=== PATIENT | female | born 1970 | race Caucasian/White ===

== ENCOUNTER 2023-12-25 08:37 | Outpatient (CLI) | payer BC, SELFPAY | END 2023-12-25 08:38 | disposition home or self-care (01) | LOC: FRMREF 08:39 | PROVIDERS: PCP Physician Assistant Medical; Visit Provider Registered Nurse | DX: N92.0 Excessive and frequent menstruation with regular cycle (principal) | CPT/HCPCS: 82728; 83540; 83550; 84443 ==

== ENCOUNTER 2024-01-26 07:08 | Outpatient (CLI) | payer BC, SELFPAY ==
--- NOTE | 2024-01-26 07:15 | US_ITS ---
Patient: PATRICIO MAC Facility:?[facility] Patient ID:?[id number] Site Patient ID:?[id number]. Site :?[id number] Study:?US-Pelvis TRANSABDOMINAL AND TRANSVAGINAL-01/26/2024 8:02:09 AM Ordering Physician:JESS WILKINSON Final Report: INDICATION: Excessive and frequent menstruation. Comparison : None. TECHNIQUE: Transabdominal and transvaginal pelvic ultrasound. FINDINGS: The uterus measures 10.4 x 6 x 6.3 cm. Heterogeneous echotexture of myometrium. A 3.2 x 3 cm hyperechoic area involving the anterior upper uterine body ; rule out fibroid. Endometrial stripe measures 1.3 cm in thickness with polypoid deformities measuring 1.4 x 0.9 x 1.2 cm and 1 x 0.7 x 0.9 cm; rule out 2 endometrial polyps. No fluid identified within the endometrial cavity. Right ovary measures 3.1 x 2 x 2.1 cm on the left ovary measures 6.4 x 2.1 x 3.1 cm. Normal blood flow to the ovaries bilaterally. A 2.3 x 2.4 x 2.7 cm simple cyst left ovary and a 2.5 cm dominant follicle left ovary. No free fluid identified in the pelvic cul-de-sac. IMPRESSION: 1. Heterogeneous myometrium with a 3.2 cm possible uterine fibroid intramural/submucosal anterior upper uterine body. 2. Polypoid deformities endometrial lining; rule out polyps; suggest hysterosonogram. 3. A 3.2 x 2.4 x 2.7 cm non complicated cyst left ovary Dictated by Kody Eaton MD @ 01/26/2024 2:59:51 PM Signed by:?Kody Eaton MD @01/26/2024 2:59:51 PM (Electronic Signature)
== END 2024-01-26 07:09 | disposition home or self-care (01) ==
PROVIDERS: PCP Physician Assistant Medical; Visit Provider Registered Nurse
DX: N92.0 Excessive and frequent menstruation with regular cycle (principal); D25.1 Intramural leiomyoma of uterus; N83.202 Unspecified ovarian cyst, left side
CPT/HCPCS: 76830; 76856; 93976

== ENCOUNTER 2024-04-06 09:30 | Day surgery (SDC) | payer BC, SELFPAY ==
[2024-04-06] MEDS: LACTATED RINGERS 1000 ML 1,000 ML 100 ML IV (07:25)
[2024-04-06 09:46] VITALS: BP 124/88; PULSE 67; RESP 18; TEMP 37.1; O2SAT 97
[2024-04-06] MEDS: SODIUM CHLORIDE 0.9 % (FLUSH) 10 ML SYRINGE IVF (10:07)
--- NOTE | 2024-04-06 10:13 | W.PM.H&PU ---
History & Physical Update History & Physical Update H&P Reviewed and patient assessed: No changes noted
--- NOTE | 2024-04-06 10:14 | SUR.PREOP ---
Pt very teary eyed when Dr. Pena into see her questions answered here with pt
[2024-04-06 10:15] LABS: Ur HCG Qualitative* Negative (Negative)
[2024-04-06 10:17] LABS: Hemoglobin* 12.7 gm/dL (12.0-16.0)
--- NOTE | 2024-04-06 10:33 | P.GYNPRC_ITS ---
Procedure Note Time Seen by Provider: 10:33 Date of procedure: 04/06/24 Will [facility] bill your pro fee for this procedure?: Yes Procedure: Preoperative diagnosis: 53 year-old with abnormal uterine bleeding. Postoperative diagnosis: Same Procedure: Hysteroscopy, dilation and curettage, polypectomy, Mirena IUD insertion, hymenal skin tag excision and repair. Anesthesia: Conscious sedation with paracervical block. Surgeon:Aaliyah Pena MD Estimated blood loss: 5 mL Specimen: Endometrial curettings/polyp to pathology. Findings: Exam under anesthesia: Mons normal, clitoris normal, urethral meatus normal. Labia minora and majora normal in appearance bilaterally. Perineum and anus normal appearance. Vaginal introitus with separation of hymenal ring at the vaginal fourchette. There is a hymenal tag on the right side and left side. Previous inclusion cyst on the left side noted on previous exam has resolved. Cervix palpates normal. Uterus: anteverted and anteflexed position, 6 week size, mobile, without nodularity/masses palpable. Adnexa were without fullness or nodularity. On hysteroscopy: Broad based polyp that encompassed almost the entirety of the anterior uterine wall. Procedure: Alyssa was taken to the operating where conscious sedation was found to be adequate. She was placed in the dorsal lithotomy position. An exam under anesthesia was performed with findings stated above. She was then prepped and draped in normal sterile manner. A bivalve metal speculum was placed in the vaginal canal. The cervix and vaginal canal appear normal. A paracervical block was placed using 1% lidocaine with epinephrine: 5 mL injected at the 4 and 8 o'clock positions on the cervix. The anterior lip of the cervix was then grasped with a long tenaculum. The cervix was dilated to Hegar 6. The uterus sounded to 8.5 cm. The hysterosc ope advanced into the uterus and a diagnostic hysteroscopy was performed with findings stated above. Normal saline was used as the insufflation medium. The hysteroscope was then removed. Polypectomy and global sampling with performed with soft tissue shaver until the polyp was removed and uterine surface contour was smooth and a normal appearing uterine cavity was noted. Fluid deficit at the end of the procedure 265 mL. The hysteroscope was removed from the uterus and cervix. Attention was then turned towards the Mirena IUD insertion. The IUD is loaded into the insertion tube, inserted to the sounded depth, and the IUD is deployed. Insertion tube was removed. Strings are trimmed to 3 cm. There were no complications with insertion. The tenaculum was removed from the anterior cervix. Attention was then turned towards her hymenal tag removal. At exam were removed bilaterally with a 15 blade. The defect was reapproximated with 2-0 Vicryl in a continuously nonlocking manner. Excellent hemostasis noted. The patient tolerated the procedure well. Sponge, lap and instruments counts were correct at the end of the procedure. The patient was awakened from anesthesia and taken to the recovery area in stable condition. Surgical debrief performed at the end of the procedure.
--- NOTE | 2024-04-06 11:19 | SUR.OPER ---
PATIENT QUESTIONS ANSWERED SATISFACTORILY PREOPERATIVELY. PATIENT BROUGHT TO OR #1 PER CART. Patient positioned supine on OR #1 bed.? Perioperative team supported arms bilaterally on arm boards.? Pt. legs then moved into the lithotomy position for the procedure. Final approval of positioning by surgeon. CONTINUOUS IRRIGATION OF THE UTERUS WITH NACL DURING PROCEDURE
--- NOTE | 2024-04-06 11:20 | W.ANESCHARGE ---
Anesthesia Charges Start Date/Time Anesthesia Start Date: 04/06/24 Anesthesia Start Time: 10:48 Stop Date/Time Anesthesia Stop Date: 04/06/24 Anesthesia Stop Time: 11:56
[2024-04-06] MEDS: cefOXitin 2 GM in 0.9 % SODIUM CHLORIDE Mini-bag 100 ML IVPB (11:38)
[2024-04-06] MEDS: BACITRACIN OINTMENT BULK TUBE 1 APPLIC TOPICAL (11:43)
--- NOTE | 2024-04-06 11:56 | W.ANESCHARGE ---
Anesthesia Charges Start Date/Time Anesthesia Start Date: 04/06/24 Anesthesia Start Time: 10:48 Stop Date/Time Anesthesia Stop Date: 04/06/24 Anesthesia Stop Time: 11:56
[2024-04-06 11:58] VITALS: BP 126/85; PULSE 73; RESP 16; TEMP 36.7; O2SAT 97
[2024-04-06 12:01] VITALS: BP 121/91; PULSE 64; RESP 16; O2SAT 100
--- NOTE | 2024-04-06 12:01 | SUR.PHASEII ---
All IV fluids are estimated
[2024-04-06 12:15] VITALS: BP 118/86; PULSE 70; RESP 16; O2SAT 98
[2024-04-06 12:30] VITALS: BP 115/84; PULSE 62; RESP 16; O2SAT 99
--- NOTE | 2024-04-06 12:44 | SUR.PHASEII ---
IV fluids are estimated
[2024-04-06 12:45] VITALS: BP 116/84; PULSE 62; RESP 16; O2SAT 99
--- NOTE | 2024-04-06 12:59 | SUR.PHASEII ---
Pt up to Br to void good amount clear yellow urine
== END 2024-04-06 13:00 | disposition home or self-care (01) ==
LOC: OR 09:31
PROVIDERS: PCP Physician Assistant Medical; Visit Provider Obstetrics & Gynecology
PROC: 0UDB8ZZ Extraction of Endometrium, Via Natural or Artificial Opening Endoscopic (ICD-10-PCS; CPT 58558; principal; 2024-04-06 11:00)
DX: N93.8 Other specified abnormal uterine and vaginal bleeding (principal); Z30.430 Encounter for insertion of intrauterine contraceptive device; N89.8 Other specified noninflammatory disorders of vagina; N84.0 Polyp of corpus uteri
CPT/HCPCS: 58558; 58300; 56700; 00952; 36415; 81025; 85018; 86850; 86870; 86880; 86900; 86901; 88305; J0694; J1100; J1885; J2250; J2405; J2704; J3010; J7120; J7298

== ENCOUNTER 2024-05-07 04:13 | Emergency (ER) | payer BC, SELFPAY ==
[2024-05-07 04:18] VITALS: BP 144/102; PULSE 80; RESP 16; TEMP 36.3; O2SAT 99; BMI 33.7
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
--- NOTE | 2024-05-07 04:27 | CRLHL7_ITS ---
For Patients: As a result of the Century Cures Act, medical imaging exams and procedure reports are released immediately into your electronic medical record. You may view this report before your referring provider. If you have questions, please contact your health care provider. INDICATION: Chest pain COMPARISON: None. TECHNIQUE: 1 view chest radiograph. FINDINGS: Devices: None Lung volumes are good. No focal or diffuse opacities. No pulmonary edema. No pleural effusion. No pneumothorax. No pneumomediastinum. Heart size is normal. IMPRESSION : Lungs clear. No acute appearing findings. Dictated by Lisa Saunders MD @ 05/07/2024 4:58:05 AM (Electronically Signed)
[2024-05-07] MEDS: ONDANSETRON 2 MG/ML inj 4 MG IVP (04:29)
[2024-05-07 04:38] LABS: Basophils Absolute Auto 0.03 K/uL (0.00-0.30); Basophils Percent Auto 0.6 % (0.0-3.0); Eosinophils Absolute Auto 0.13 K/uL (0.00-0.50); Eosinophils Percent Auto 2.6 % (0.0-7.0); Hematocrit 39.6 % (33.0-51.0); Hemoglobin* 12.4 gm/dL (12.0-16.0); Immature Granulocytes Abs Auto 0.04 K/uL (0.00-0.30); Immature Granulocytes Pct Auto 0.8 %; Lymphocytes Absolute Auto 1.11 K/uL (0.90-2.90); Mean Corpuscular HGB Conc 31 gm/dL (32-36); Mean Corpuscular Hemoglobin 27 pg (26-34); Mean Corpuscular Volume 85 fL (80-100); Monocytes Percent Auto 7.9 % (0.0-11.0); Neutrophils Absolute Auto 3.34 K/uL (1.7-7.0); Neutrophils Percent Auto 66.1 % (42.0-72.0); Platelet Count* 255 K/uL (140-440); RDW Coefficient of Variation % 14.5 % (11.5-15.5); Red Blood Count 4.68 m/uL (4.00-5.20); White Blood Count* 5.05 K/uL (4.50-11.00)
[2024-05-07 04:41] LABS: Slide Review Reflex No
[2024-05-07 04:45] VITALS: BP 135/90; PULSE 74; RESP 18; O2SAT 98
--- NOTE | 2024-05-07 04:45 | PC.NURSE ---
Physician informed that pt's chest discomfort 07/06. See MAR, will continue to assess pt's discomfort. VSS. at bedside. 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 stated she did have similar episode approx. one week ago but improved following Zofran ODT, feels like she has to burp but she can't.
[2024-05-07 04:47] LABS: Albumin* 4.2 g/dL (3.3-5.0); Chloride* 108 mmol/L (96-114)
[2024-05-07 04:48] LABS: Potassium* 3.9 mmol/L (3.6-5.1); Sodium* 142 mmol/L (135-149)
[2024-05-07 04:50] LABS: Alanine Aminotransferase* 22 U/L (4-35); Alkaline Phosphatase* 63 U/L (40-150); Anion Gap 8 mEq/L (7-15); Aspartate Amino Transferase* 28 U/L (12-35); Bilirubin Total* 0.5 mg/dL (0.1-1.5); Blood Urea Nitrogen* 20 mg/dL (7-30); Carbon Dioxide* 26 mmol/L (20-32); Creatinine* 0.6 mg/dL (0.5-1.5); Estimated Glomerular Filt Rate 107 ml/min; Total Protein* 6.9 g/dL (6.0-8.3)
[2024-05-07 04:51] LABS: Calcium* 9.1 mg/dL (8.4-10.6); Glucose* 110 mg/dL (60-115)
[2024-05-07 04:53] LABS: D Dimer Quantitative* 0.71 ug/ml (0.00-0.50)
[2024-05-07 05:03] LABS: Troponin I* < 0.01 ng/mL (0.01-0.04)
[2024-05-07 05:17] VITALS: BP 123/80; PULSE 68; RESP 16; O2SAT 96
[2024-05-07] MEDS: LORazepam 2 MG/ML inj 1 MG IVP (05:18)
== END 2024-05-07 06:22 | disposition home or self-care (01) ==
PROVIDERS: Emergency Provider Internal Medicine; PCP Physician Assistant Medical
DX: R07.89 Other chest pain (principal)
CPT/HCPCS: 36415; 71045; 80053; 84484; 85025; 85379; 96374; 96375; 99283; 99284; J2060; J2405